=== PATIENT | female | born 1935 | race Caucasian/White ===

== ENCOUNTER 2022-05-07 09:23 | Outpatient (CLI) | payer MEDICARE, BC | END 2022-05-07 09:24 | disposition home or self-care (01) | LOC: CSHMAMMO 09:23 | PROVIDERS: ATTEND Internal Medicine Hematology & Oncology | DX: Z08 Encounter for follow-up examination after completed treatment for malignant neoplasm (principal); Z85.3 Personal history of malignant neoplasm of breast | CPT/HCPCS: 77066; G0279 ==

== ENCOUNTER 2023-03-05 08:06 | Outpatient (CLI) | payer MEDICARE, BC | END 2023-03-05 08:07 | disposition home or self-care (01) | LOC: CSHMAMMO 08:06 | PROVIDERS: ATTEND Family Medicine | DX: M81.0 Age-related osteoporosis without current pathological fracture (principal); N95.8 Other specified menopausal and perimenopausal disorders | CPT/HCPCS: 77080 ==

== ENCOUNTER 2023-09-29 10:28 | Observation (INO) | payer MEDICARE ==
[2023-09-29] MEDS ORDERED: Aspirin Chewable 81 MG TAB ONE (11:33)
[2023-09-29 11:34] LABS: #Basophils 0.03 10x3/uL (0.0-0.2); #Eosinphils 0.04 10x3/uL (0.0-0.5); #Neutrophils 3.68 10x3/uL (1.5-8.4); %Basophils 0.5 % (0.0-2.0); %Eosinophils 0.7 % (0.0-6.0); %Lymphocytes 24.1 % (18.0-47.0); %Monocytes 7.3 % (0.0-10.0); %Neutrophils 66.9 % (40.0-75.0); Hematocrit 39.5 % (34.9-44.5); Hemoglobin 13.9 g/dL (12.0-15.5); Mean Corpuscular HGB CONC 35.2 g/dL (32.0-36.0); Mean Corpuscular Hemoglobin 32.2 pg (27.0-33.0); Mean Corpuscular Volume 91.4 fL (81.6-98.3); Platelet Count 213 10x3/uL (150-450); RBC Distribution Width 11.6 % (11.5-14.5); Red Blood Cell (RBC) Count 4.32 10x6/uL (3.90-5.03); White Blood Cell (WBC) Count 5.5 10x3/uL (3.5-10.5)
[2023-09-29 11:54] LABS: ALT (SGPT) 17 U/L (8-55); AST (SGOT) 25 U/L (5-34); Alkaline Phosphatase 69 U/L (40-110); Anion Gap 13 mmol/L (10-20); BUN (Urea Nitrogen) 20 mg/dL (9.8-20.1); Bilirubin, Total 0.3 mg/dL (0.2-1.2); Calc. Creatinine Clearance 0 mL/min (70-130); Carbon Dioxide 26 mmol/L (23-31); Chloride 100 mmol/L (98-107); Estimated GFR 70; Globulin 2.7 g/dL (2.4-3.5); Glucose 121 mg/dL (83-110); Protein, Total 6.7 g/dL (5.8-8.1); Sodium 135 mmol/L (136-145)
[2023-09-29 11:59] LABS: Troponin I Less than 0.010 ng/mL (< 0.028)
[2023-09-29] MEDS ORDERED: Calcium Carbonate 500 MG ChewTAB PO PRN (12:52)
[2023-09-29] MEDS ORDERED: Senokot S 8.6-50 MG TAB PO PRN (12:52)
[2023-09-29] MEDS ORDERED: Ondansetron PF 4 MG/2 ML Vial IVP PRN (12:52)
[2023-09-29] MEDS ORDERED: traMADol HCl 50 MG TAB PO PRN (13:00)
[2023-09-29 13:44] LABS: Bilirubin Neg (Negative); Blood, Urine Negative (Negative); Clarity Clear (Clear); Glucose, Urine (Dipstick) Normal (Negative); Ketone, Urine Negative (Negative); Leukocyte Negative (Negative); Nitrite Negative (Negative); Protein, Urine (Dipstick) Negative (Neg-Trace); Specific Gravity, Urine 1.005 (1.005-1.030); Urobilinogen Normal mg/dL (Less than 2)
[2023-09-29 14:13] LABS: CAUTI Indications for Culture Pelvic or flank pain; RBC/HPF 0-3 HPF (0-3); Squamous Epithelial 0-3 HPF (0-3); WBC/HPF 0-3 HPF (0-3)
[2023-09-29 14:14] LABS: Bacteria/HPF Rare-Few HPF (None Seen)
[2023-09-29 14:15] VITALS: BMI 21.9
[2023-09-29 14:15] LABS: Urine Culture Reflex No No
[2023-09-29 14:39] LABS: Troponin I Less than 0.010 ng/mL (< 0.028)
[2023-09-29] MEDS: Acetaminophen 325 MG TAB PO SCH (17:30)
[2023-09-29 17:37] LABS: Troponin I Less than 0.010 ng/mL (< 0.028)
[2023-09-29] MEDS ORDERED: Atropine Sulfate 1 mg/10 ml Syringe IVP PRN (18:27)
[2023-09-29] MEDS: carBAMazepine 200 MG TAB PO SCH (21:01)
[2023-09-30 04:50] LABS: #Basophils 0.05 10x3/uL (0.0-0.2); #Eosinphils 0.13 10x3/uL (0.0-0.5); #Monocytes 0.52 10x3/uL (0.0-1.1); #Neutrophils 2.22 10x3/uL (1.5-8.4); %Eosinophils 2.6 % (0.0-6.0); %Monocytes 10.4 % (0.0-10.0); %Neutrophils 44.6 % (40.0-75.0); Hematocrit 37.1 % (34.9-44.5); Hemoglobin 13.5 g/dL (12.0-15.5); Mean Corpuscular HGB CONC 36.4 g/dL (32.0-36.0); Mean Corpuscular Hemoglobin 32.5 pg (27.0-33.0); Mean Corpuscular Volume 89.4 fL (81.6-98.3); Platelet Count 190 10x3/uL (150-450); RBC Distribution Width 11.5 % (11.5-14.5); Red Blood Cell (RBC) Count 4.15 10x6/uL (3.90-5.03)
[2023-09-30 05:05] LABS: ALT (SGPT) 11 U/L (8-55); AST (SGOT) 22 U/L (5-34); Albumin 3.5 g/dL (3.4-4.8); Alkaline Phosphatase 63 U/L (40-110); Anion Gap 11 mmol/L (10-20); BUN (Urea Nitrogen) 16 mg/dL (9.8-20.1); Bilirubin, Total 0.4 mg/dL (0.2-1.2); Calc. Creatinine Clearance 47 mL/min (70-130); Carbon Dioxide 26 mmol/L (23-31); Cardiac Risk 3.2 (Less than 4.5); Chloride 99 mmol/L (98-107); Cholesterol 169 mg/dl (< 200 Desired); Estimated GFR 80; Globulin 2.7 g/dL (2.4-3.5); Glucose 94 mg/dL (83-110); HDL Cholesterol 53 mg/dL (>60 Neg Risk); LDL Cholesterol, Calculated 104 mg/dL; Potassium 3.9 mmol/L (3.5-5.1); Protein, Total 6.2 g/dL (5.8-8.1); Sodium 132 mmol/L (136-145); Triglycerides 60 mg/dL (Less than 150)
[2023-09-30] MEDS: Cholecalciferol 1,000 UNITS (25 MCG) TAB PO SCH (10:25)
[2023-09-30] MEDS: Enoxaparin 40 MG (0.4 mL) SYRINGE SC SCH (10:29)
[2023-09-30 12:18] VITALS: BP 142/65; TEMP 98.5
[2023-09-30 13:20] LABS: Hemoglobin A1c 5.5 % (4.0-6.0)
== END 2023-09-30 12:49 | disposition home or self-care (01) ==
LOC: CSHERS 10:28 → SUATTDRO 10:28 → CSHTELE 14:05
PROVIDERS: ADMIT Internal Medicine; ATTEND Internal Medicine
PROC: B246ZZZ Ultrasonography of Right and Left Heart (ICD-10-PCS; principal; 2023-09-29)
DX: R07.9 Chest pain, unspecified (principal); G50.0 Trigeminal neuralgia; Z91.040 Latex allergy status; Z88.2 Allergy status to sulfonamides; Z79.899 Other long term (current) drug therapy; Z85.3 Personal history of malignant neoplasm of breast; Z91.02 Food additives allergy status; Z91.018 Allergy to other foods; Z91.012 Allergy to eggs
CPT/HCPCS: 71045; 80053; 80061; 81001; 83036; 83880; 84484 ×2; 85025; 93005; 93306; 94760 ×2; 99285; G0378 ×2; 36415; 84443